=== PATIENT | female | born 1985 | race Caucasian/White ===

== ENCOUNTER 2017-05-05 09:04 | Emergency (ER) | payer OTHER | END 2017-05-05 12:34 | disposition home or self-care (01) | LOC: ED 09:04 | DX: N83.201 Unspecified ovarian cyst, right side (principal) | CPT/HCPCS: 74177; 80053; 81001; 83690; 84703; 85025; 87077; 87088; 87186; 96374; 96375; 99284; Q9967 ==

== ENCOUNTER 2020-07-25 07:59 | Emergency (ER) | payer OTHER ==
[~2020-07-25] VITALS: Ht 170.2 cm; Wt 54.4 kg
[2020-07-25] MEDS ORDERED: AUGMENTIN 875-1 EACH PO (09:13)
== END 2020-07-25 09:30 | disposition home or self-care (01) ==
LOC: ED 07:59
DX: S61.051A Open bite of right thumb without damage to nail, initial encounter (principal); W54.0XXA Bitten by dog, initial encounter; Z91.040 Latex allergy status; Z91.011 Allergy to milk products; Z88.8 Allergy status to other drugs, medicaments and biological substances
CPT/HCPCS: 12002; 90471; 90715; 99283-25